=== PATIENT | female | born 1955 | race Caucasian/White ===

== ENCOUNTER 2016-09-03 13:31 | Inpatient (IN) | payer MEDICARE, OTHER ==
[2016-09-03] MEDS ORDERED: MAGNESIUM HYDROXIDE SUSP 30 ML CUP PO PRN (14:15)
[2016-09-03] MEDS ORDERED: SODIUM CHLORIDE 0.9% FLUSH 10 ML FLUSH IV FLUSH PRN (14:15)
[2016-09-03] MEDS ORDERED: ACETAMINOPHEN 325 MG TAB PO PRN ×2 (14:15→20:15)
[2016-09-03] MEDS ORDERED: RESP: ALBUTEROL 2.5 MG/IPRATROPIUM 0.5 MG NEB (PRN) NEB (14:15)
[2016-09-03 20:00] VITALS: BP 176/86; PULSE 72; RESP 18; TEMP 97.1; O2SAT 94
[2016-09-03] MEDS: ONDANSETRON HCL 4 MG/2 ML VIAL IVP PRN (20:39)
[2016-09-03] MEDS: methylPREDNISolone SOD SUCC 40 MG/1 ML VIAL IV PUSH SCH (20:39)
[2016-09-03] MEDS: SODIUM CHLORIDE 0.9% FLUSH 10 ML FLUSH IV FLUSH SCH (20:39)
[2016-09-03] MEDS: ENOXAPARIN SODIUM 40 MG/0.4 ML SYRINGE SQ SCH (20:39)
[2016-09-03] MEDS: RESP: ALBUTEROL 2.5 MG/IPRATROPIUM 0.5 MG NEB (SCH) NEB (20:59)
[2016-09-03 21:00] VITALS: O2SAT 98
--- NOTE | 2016-09-03 21:31 | HHI.HP ---
HPI Service [facility] Primary Care Physician Non-Staff Admission Diagnosis Diagnoses: Chief Complaint: Shortness of breath Travel History International Travel<30 Days: No Contact w/Intl Traveler <30 Da: No Traveled to Known Affected Are: No History of Present Illness The patient is very pleasant 61-year-old female with past medical history of hypertension, rheumatoid arthritis, osteopenia, fibromyalgia, chronic back pain who presented in the emergency room [facility] in [place] for evaluation of shortness of breath and wheezing. Patient says came from [place] for vacation. She says was starting wheezing and feeling shortness of breath, she took her nebulizers and inhalers but did not help. She also started vomiting and she had diarrhea yesterday and in the morning. No blood in it. She was not able to eat today because she was feeling sick. No fever or chills. She says she feels short of breath wheezing and has associated cough. Denies abdominal pain or chest pain. Denies lightheadedness or palpitations. No problem with urination. No rash on the body. There is no lower extremity edema. Review of Systems Except as stated in HPI: all other systems reviewed are Neg Past Family Social History Past Medical History Hypertension, rheumatoid arthritis, osteopenia, fibromyalgia. COPD/asthma Past Surgical History Laminectomy, fusion L2, L3, L4 Left knee surgery Right foot surgery Allergies: Coded Allergies: Penicillin (Verified Allergy, Unknown, 09/03/16) Family History Mother with diabetes, skin cancer melanoma Sister with SLE., chronic kidney disease Social History Denies alcohol use, illicit drug use, tobacco use Physical Exam Vital Signs Vital Signs Date Time Temp Pulse Resp B/P Pulse Ox O2 Delivery O2 Flow Rate FiO2 09/03/16 21:00 98 Nasal Cannula 2.00 Physical Exam GENERAL: This is a very pleasant 61-year-old female, well-nourished, well- developed patient, in no apparent distress. SKIN: No rashes, ecchymoses or lesions. Cool and dry. HEAD: Atraumatic. Normocephalic. No temporal or scalp tenderness. EYES: Pupils equal round and reactive. Extraocular motions intact. No scleral icterus. No injection or drainage. ENT: Nose without bleeding, purulent drainage or septal hematoma. Throat without erythema, tonsillar hypertrophy or exudate. Uvula midline. Airway patent. NECK: Trachea midline. No JVD or lymphadenopathy. Supple, nontender, no meningeal signs. CARDIOVASCULAR: Regular rate and rhythm without murmurs, gallops, or rubs. RESPIRATORY: Decreased breath sounds. Scattered wheezing. Cough. Bronchial breath sounds. GASTROINTESTINAL: Abdomen soft, non-tender, nondistended. No hepato-splenomegaly , or palpable masses. No guarding. MUSCULOSKELETAL: Extremities without clubbing, cyanosis, or edema. No joint tenderness, effusion, or edema noted. No calf tenderness. Negative Homans sign bilaterally. NEUROLOGICAL: Awake and alert. Cranial nerves II through XII intact. Motor and sensory grossly within normal limits. Five out of 5 muscle strength in all muscle groups. Normal speech. Assessment and Plan Assessment and Plan The patient is a pleasant 61-year-old female with Asthma/COPD exacerbation Chest x-ray reviewed and findings discussed with Dr. Dunne in ED [facility]. No acute findings, no infiltrates. DuoNeb's schedule and as need Start Solu Medrol IV, taper down as tolerated. Mucinex for cough/ Congestion Incentive spirometry Oxygen support as needed, keep oxygen saturation more than 92% She is saturating well on 2 L nasal cannula at this time There is no leukocytosis, tachycardia or fever on admission. An x-ray without infiltrate. We'll hold on antibiotics at this time Nausea and Diarrhea. Resolved currently. Check clostridium difficile negative diarrhea recur. Antiemetics as need. IV fluids if patient cannot tolerate by mouth. Hypertension. Patient not sure what current medications she is taking but she has to at home. Her sister will bring the medications tomorrow review. Her blood pressure is not controlled at this time, start amlodipine. Hydralazine and Vasotec as needed when necessary. Monitor vital signs. Chronic medical problems rheumatoid arthritis, osteopenia, chronic back pain, fibromyalgia appears stable at this time. Patient says she is taking [place] at home for pain. Start Bozman for pain control. Says she's follow-up in with her rheumatology in [place]. Activity prophylaxis SCD/teds, Lovenox Discussed Condition With Patient, nurse, ED physician in [facility] ER, family at bedside Elsa Ch MD September 03, 2016 21:31
[2016-09-03] MEDS ORDERED: ACETAMINOPHEN/HYDROcodone 325 MG/5 MG TAB PO PRN (22:30)
[2016-09-03] MEDS: TEMAZEPAM 15 MG CAP PO PRN (23:42)
[2016-09-03] MEDS: SODIUM CHLOR 0.9% 1000 ML INJ 1,000 ML IV SCH (23:42)
[2016-09-03] MEDS: ACETAMINOPHEN/HYDROcodone 325 MG/10 MG TAB PO PRN (23:43)
[2016-09-04] VITALS (9 sets, daily range): BP systolic 135–168; BP diastolic 61–87; PULSE 69–89; RESP 18–20; TEMP 97–98.1; O2SAT 94–98
[2016-09-04] MEDS: methylPREDNISolone SOD SUCC 40 MG/1 ML VIAL IV PUSH SCH ×4 (01:06→20:06)
[2016-09-04] MEDS: ONDANSETRON HCL 4 MG/2 ML VIAL IVP PRN ×3 (05:20→16:42)
[2016-09-04 07:33] LABS: CHLORIDE 106 MEQ/L (98-107); POTASSIUM 3.3 MEQ/L (3.5-5.1); SODIUM (NA) 140 MEQ/L (136-145)
[2016-09-04 07:41] LABS: ANION GAP 9 MEQ/L (5-15); BICARBONATE 25.3 MEQ/L (21.0-32.0); BLOOD UREA NITROGEN 20 MG/DL (7-18)
[2016-09-04 07:45] LABS: AST (GOT) 38 U/L (15-37); TOTAL BILIRUBIN ADULT 0.4 MG/DL (0.2-1.0)
[2016-09-04 07:46] LABS: ALKALINE PHOSPHATASE 97 U/L (45-117)
[2016-09-04 07:48] LABS: ALT (GPT) 67 U/L (10-53); GLOMERULAR FILTRATION RATE 85 ML/MIN (>89)
[2016-09-04] MEDS: RESP: ALBUTEROL 2.5 MG/IPRATROPIUM 0.5 MG NEB (SCH) NEB ×4 (07:57→19:23)
[2016-09-04 08:12] LABS: AUTOMATED NEUTROPHIL # 6.9 TH/MM3 (1.8-7.7); BASOPHIL % 0.5 % (0.0-2.0); EOSINOPHIL % 0.1 % (0.0-4.0); HEMATOCRIT 37.3 % (35.0-46.0); HEMO FLAGS DIFF FINAL; LYMPH % 5.9 % (9.0-44.0); LYMPHOCYTE # 0.4 TH/MM3 (1.0-4.8); MEAN CELL VOLUME 90.3 FL (80.0-100.0); MEAN CORPUSCULAR HEMOGLOBIN 30.7 PG (27.0-34.0); MONO % 1.5 % (0.0-8.0); PLATELET COUNT 164 TH/MM3 (150-450); RED BLOOD COUNT 4.14 MIL/MM3 (4.00-5.30); RED CELL DISTRIBUTION WIDTH 13.8 % (11.6-17.2); WHITE BLOOD COUNT 7.4 TH/MM3 (4.0-11.0)
[2016-09-04] MEDS ORDERED: amLODIPine BESYLATE 5 MG TAB PO SCH (09:00)
[2016-09-04] MEDS: SODIUM CHLORIDE 0.9% FLUSH 10 ML FLUSH IV FLUSH SCH ×2 (09:00→20:06)
[2016-09-04] MEDS: ACETAMINOPHEN/HYDROcodone 325 MG/10 MG TAB PO PRN ×3 (09:49→23:22)
--- NOTE | 2016-09-04 09:58 | HHI.PR ---
Subjective Remarks Says she still feels wheezing, she is coughing yellow sputum. She is vomiting clear fluid with white chunks. Not able to keep much food down. No diarrhea. No fever overnight. She is also complaining of severe headache and muscle cramps. Objective Vitals Vital Signs Date Time Temp Pulse Resp B/P Pulse Ox O2 Delivery O2 Flow Rate FiO2 09/04/16 07:59 98 Nasal Cannula 2.00 09/04/16 04:00 97.0 71 20 152/80 98 09/04/16 00:00 97.4 75 20 163/85 97 09/03/16 21:00 98 Nasal Cannula 2.00 09/03/16 20:00 94 Nasal Cannula 2.00 09/03/16 20:00 97.1 72 18 176/86 94 I/O 09/03/16 09/03/16 09/03/16 09/04/16 09/04/16 09/04/16 07:00 15:00 23:00 07:00 15:00 23:00 Intake Total 240 ml 776 ml Balance 240 ml 776 ml Intake Oral 240 ml 240 ml IV Total 536 ml # Voids 1 1 # Bowel Movements 0 0 Result Diagram: 09/04/16 0709/04/16 0700 Objective Remarks GENERAL: This is a very pleasant 61-year-old female, well-nourished, well- developed patient, in no apparent distress. SKIN: No rashes, ecchymoses or lesions. Cool and dry. HEAD: Atraumatic. Normocephalic. No temporal or scalp tenderness. EYES: Pupils equal round and reactive. Extraocular motions intact. No scleral icterus. No injection or drainage. ENT: Nose without bleeding, purulent drainage or septal hematoma. Throat without erythema, tonsillar hypertrophy or exudate. Uvula midline. Airway patent. NECK: Trachea midline. No JVD or lymphadenopathy. Supple, nontender, no meningeal signs. CARDIOVASCULAR: Regular rate and rhythm without murmurs, gallops, or rubs. RESPIRATORY: Decreased breath sounds. Scattered wheezing. Cough. Bronchial breath sounds. GASTROINTESTINAL: Abdomen soft, non-tender, nondistended. No hepato-splenomegaly , or palpable masses. No guarding. MUSCULOSKELETAL: Extremities without clubbing, cyanosis, or edema. No joint tenderness, effusion, or edema noted. No calf tenderness. Negative Homans sign bilaterally. NEUROLOGICAL: Awake and alert. Cranial nerves II through XII intact. Motor and sensory grossly within normal limits. Five out of 5 muscle strength in all muscle groups. Normal speech. A/P Assessment and Plan The patient is a pleasant 61-year-old female with Asthma/COPD exacerbation Chest x-ray reviewed and findings discussed with Dr. Dunne in ED [facility]. No acute findings, no infiltrates. DuoNeb's schedule and as need Start Solu Medrol IV, taper down as tolerated. Mucinex for cough/ Congestion Incentive spirometry Oxygen support as needed, keep oxygen saturation more than 92% She is saturating well on 2 L nasal cannula at this time There is no leukocytosis, tachycardia or fever on admission. An x-ray without infiltrate. We'll hold on antibiotics at this time LE pain, patient did travel by long ride car from [facility]. Says she has a h/ o DVT and was on xarelto ~3 years ago. Will check doppler US bilar LE to r/o DVT. Nausea and Diarrhea. Resolved currently. Check clostridium difficile negative diarrhea recur. Antiemetics as need. IV fluids if patient cannot tolerate by mouth. Hypertension. Patient not sure what current medications she is taking but she has to at home. Her sister will bring the medications tomorrow review. Her blood pressure is not controlled at this time, start amlodipine. Hydralazine and Vasotec as needed when necessary. Monitor vital signs. Chronic medical problems rheumatoid arthritis, osteopenia, chronic back pain, fibromyalgia appears stable at this time. Patient says she is taking [place]ber[place] at home for pain. Start Dubberly for pain control. Dilaudid for breakthrough pain. Says she's follow-up with her rheumatology doctor in [place]. Activity prophylaxis SCD/teds, Lovenox Discussed Condition With Patient, nurse Elsa Ch MD September 04, 2016 09:58
[2016-09-04] MEDS ORDERED: methylPREDNISolone SOD SUCC 40 MG/1 ML VIAL IV PUSH ONE (10:15)
[2016-09-04] MEDS ORDERED: amLODIPine BESYLATE 5 MG TAB PO ONE (11:00)
[2016-09-04] MEDS ORDERED: POTASSIUM CHLORIDE 10 MEQ CONTROLLED RELEASE TAB PO ONE (11:00)
[2016-09-04] MEDS: MAGNESIUM OXIDE 400 MG TAB PO SCH (11:27)
[2016-09-04] MEDS: AZITHROMYCIN INJ 500 MG in SODIUM CHLOR 0.9% 250 ML INJ 250 ML IV SCH (11:27)
[2016-09-04] MEDS: SODIUM CHLOR 0.9% 1000 ML INJ 1,000 ML IV SCH (11:28)
[2016-09-04] MEDS: HYDROmorphone HCL PF 1 MG/ML VIAL IV PUSH PRN ×3 (11:36→23:59)
[2016-09-04] MEDS ORDERED: methylPREDNISolone SOD SUCC 40 MG/1 ML VIAL IV PUSH SCH (12:00)
--- NOTE | 2016-09-04 14:30 | RADHPO ---
EXAM DATE/TIME: 09/04/2016 13:55 [facility] COMPARISON: No previous studies available for comparison. INDICATIONS : Bilateral leg pain. MEDICAL HISTORY : Chronic obstructive pulmonary disease. Hypertension. Gastroesophageal reflux disease. DVT. Kidney st ones. Arthritis. Osteoporosis. SURGICAL HISTORY : Appendectomy.Hysterectomy. Cholecystectomy. section. Left knee replacement. ENCOUNTER: Initial ACUITY: 1 week PAIN SCORE: 5/10 LOCATION: Bilateral legs. TECHNIQUE: Venous ultrasound of the left and right leg was performed from the inguinal ligament to the proximal calf. Real-time, color Doppler and spectral tracing, compression and augmentation techniques were us ed. FINDINGS: RIGHT LEG: There is normal compressibility of the deep venous system from the inguinal region to the proximal ca lf. No echogenic clot is seen in the lumen of the common femoral, femoral, popliteal, and posterior tibial veins. There is a normal response of the venous system to proximal and distal augmentation an d respiration. LEFT LEG: There is normal compressibility of the deep venous system from the inguinal region to the proximal ca lf. No echogenic clot is seen in the lumen of the common femoral, femoral, popliteal, and posterior tibial veins. There is a normal response of the venous system to proximal and distal augmentation an d respiration. CONCLUSION: 1. No DVT identified within either lower extremity. Shashi To MD on September 04, 2016 at 14:28 Board Certified Radiologist. This report was verified electronically.
[2016-09-04] MEDS: ENOXAPARIN SODIUM 40 MG/0.4 ML SYRINGE SQ SCH (20:06)
[2016-09-04] MEDS: TEMAZEPAM 15 MG CAP PO PRN (23:59)
[2016-09-05] VITALS (7 sets, daily range): BP systolic 124–153; BP diastolic 58–82; PULSE 67–77; RESP 16–20; TEMP 96.2–97.4; O2SAT 94–97
[2016-09-05] MEDS: methylPREDNISolone SOD SUCC 40 MG/1 ML VIAL IV PUSH SCH ×3 (02:07→15:37)
[2016-09-05] MEDS: ACETAMINOPHEN/HYDROcodone 325 MG/10 MG TAB PO PRN ×2 (07:46→13:55)
[2016-09-05] MEDS: ONDANSETRON HCL 4 MG/2 ML VIAL IVP PRN ×2 (07:46→13:55)
[2016-09-05] MEDS: SODIUM CHLORIDE 0.9% FLUSH 10 ML FLUSH IV FLUSH SCH ×2 (07:47→21:37)
[2016-09-05] MEDS: RESP: ALBUTEROL 2.5 MG/IPRATROPIUM 0.5 MG NEB (SCH) NEB ×4 (07:55→19:22)
--- NOTE | 2016-09-05 08:35 | HHI.PR ---
Subjective Remarks Patient in bed, says she feel improving. Says she was able to eat some breakfast. Still with nausea, no vomiting. Denies diarrhea. No abdominal pIn. Seh feels her chest is congested. + cough, with some yellow sputum. No fever or chills overnight. Objective Vitals Vital Signs Date Time Temp Pulse Resp B/P Pulse Ox O2 Delivery O2 Flow Rate FiO2 09/05/16 04:40 09/05/16 00:33 96.7 67 16 136/71 94 09/05/16 00:22 18 09/05/16 00:22 18 09/04/16 21:22 97.1 80 18 135/61 94 09/04/16 20:00 94 Room Air 09/04/16 19:25 96 21 09/04/16 16:30 97.2 89 19 167/85 96 09/04/16 15:46 95 21 09/04/16 13:36 97.2 88 19 168/84 95 09/04/16 10:31 98.1 69 19 165/87 95 I/O 09/04/16 09/04/16 09/04/16 09/05/16 09/05/16 09/05/16 07:00 15:00 23:00 07:00 15:00 23:00 Intake Total 776 ml 750 ml Output Total 300 ml Balance 776 ml 750 ml -300 ml Intake Oral 240 ml 750 ml IV Total 536 ml Output Urine Total 300 ml # Voids 1 4 1 # Bowel Movements 0 1 0 Result Diagram: 09/04/16 0700 09/04/16 0700 Imaging Last Impressions Lower Extremity Ultrasound 09/04/16 0000 Signed Impressions: Service Date/Time: Sunday, September 04, 2016 13:55 - CONCLUSION: 1. No DVT identified within either lower extremity. Shashi To MD Objective Remarks GENERAL: This is a very pleasant 61-year-old female, well-nourished, well- developed patient, in no apparent distress. SKIN: No rashes, ecchymoses or lesions. Cool and dry. HEAD: Atraumatic. Normocephalic. No temporal or scalp tenderness. EYES: Pupils equal round and reactive. Extraocular motions intact. No scleral icterus. No injection or drainage. ENT: Nose without bleeding, purulent drainage or septal hematoma. Throat without erythema, tonsillar hypertrophy or exudate. Uvula midline. Airway patent. NECK: Trachea midline. No JVD or lymphadenopathy. Supple, nontender, no meningeal signs. CARDIOVASCULAR: Regular rate and rhythm without murmurs, gallops, or rubs. RESPIRATORY: Decreased breath sounds. Scattered wheezing. Cough. Bronchial breath sounds. GASTROINTESTINAL: Abdomen soft, non-tender, nondistended. No hepato-splenomegaly , or palpable masses. No guarding. MUSCULOSKELETAL: Extremities without clubbing, cyanosis, or edema. No joint tenderness, effusion, or edema noted. No calf tenderness. Negative Homans sign bilaterally. NEUROLOGICAL: Awake and alert. Cranial nerves II through XII intact. Motor and sensory grossly within normal limits. Five out of 5 muscle strength in all muscle groups. Normal speech. A/P Assessment and Plan The patient is a pleasant 61-year-old female with Asthma/COPD exacerbation Chest x-ray reviewed and findings discussed with Dr. Dunne in ED [facility]. No acute findings, no infiltrates. DuoNeb's schedule and as need Start Solu Medrol IV, taper down as tolerated. Mucinex for cough/ Congestion Incentive spirometry. Add acapella Oxygen support as needed, keep oxygen saturation more than 92% She is saturating well on room air at this time There is no leukocytosis, tachycardia or fever on admission. An x-ray without infiltrate. We'll hold on antibiotics at this time LE baron, patient did travel by long ride car from [facility]. Says she has a h/ o DVT and was on xarelto ~3 years ago. Doppler US bilat LE reviewed and no DVT. Nausea and Diarrhea. Resolved currently. Check clostridium difficile if diarrhea recur. Antiemetics as need. IV fluids if patient cannot tolerate by mouth. Hypertension. Patient not sure what current medications she is taking but she has to at home. Her sister will bring the medications tomorrow review. Her blood pressure is not controlled at this time, start amlodipine. Hydralazine and Vasotec as needed when necessary. Monitor vital signs. Chronic medical problems rheumatoid arthritis, osteopenia, chronic back pain, fibromyalgia appears stable at this time. Patient says she is taking [place] at home for pain. Start [place] for pain control. Dilaudid for breakthrough pain. Says she's follow-up with her rheumatology doctor in [place]. Activity prophylaxis SCD/teds, Lovenox Discussed Condition With Patient, nurse DC plan: Pending improvement, poss DC 1-2 days Elsa Ch MD September 05, 2016 08:35
[2016-09-05] MEDS: MAGNESIUM OXIDE 400 MG TAB PO SCH (09:40)
[2016-09-05] MEDS: guaiFENesin E.R. 600 MG TAB PO SCH ×2 (09:40→21:37)
[2016-09-05] MEDS: guaiFENesin/DEXTROMETHORPHAN 200 MG/20 MG/10 ML CUP PO PRN ×3 (09:41→17:54)
[2016-09-05] MEDS: HYDROmorphone HCL PF 1 MG/ML VIAL IV PUSH PRN ×3 (09:41→19:56)
[2016-09-05] MEDS: AZITHROMYCIN INJ 500 MG in SODIUM CHLOR 0.9% 250 ML INJ 250 ML IV SCH (09:41)
[2016-09-05] MEDS: ENOXAPARIN SODIUM 40 MG/0.4 ML SYRINGE SQ SCH (21:37)
[2016-09-05] MEDS: TEMAZEPAM 15 MG CAP PO PRN (21:37)
[2016-09-06] MEDS: methylPREDNISolone SOD SUCC 40 MG/1 ML VIAL IV PUSH SCH ×2 (00:34→07:42)
[2016-09-06] MEDS: ONDANSETRON HCL 4 MG/2 ML VIAL IVP PRN ×2 (00:37→07:43)
[2016-09-06 00:51] VITALS: BP 141/76; PULSE 73; RESP 16; TEMP 98; O2SAT 98
[2016-09-06] MEDS: ACETAMINOPHEN/HYDROcodone 325 MG/10 MG TAB PO PRN ×2 (05:37→11:24)
[2016-09-06] MEDS: guaiFENesin/DEXTROMETHORPHAN 200 MG/20 MG/10 ML CUP PO PRN ×2 (05:40→11:23)
[2016-09-06] MEDS: RESP: ALBUTEROL 2.5 MG/IPRATROPIUM 0.5 MG NEB (SCH) NEB ×3 (07:41→15:17)
[2016-09-06 07:42] VITALS: O2SAT 96
[2016-09-06] MEDS: HYDROmorphone HCL PF 1 MG/ML VIAL IV PUSH PRN (07:43)
[2016-09-06] MEDS: guaiFENesin E.R. 600 MG TAB PO SCH (07:43)
[2016-09-06] MEDS: SODIUM CHLORIDE 0.9% FLUSH 10 ML FLUSH IV FLUSH SCH (07:43)
[2016-09-06 08:00] VITALS: BP 145/75; PULSE 58; RESP 20; TEMP 97.1; O2SAT 97
[2016-09-06] MEDS ORDERED: HYDR-3583 PO (08:52)
[2016-09-06] MEDS ORDERED: AZIT250T3 PO (08:52)
[2016-09-06] MEDS ORDERED: IPRA17I INH (08:52)
[2016-09-06] MEDS ORDERED: PRED10PA PO (08:52)
[2016-09-06] MEDS ORDERED: VENTAER INH (08:52)
[2016-09-06] MEDS ORDERED: SYMB160A INH (08:52)
[2016-09-06] MEDS ORDERED: AMLO10 PO (08:52)
[2016-09-06] MEDS ORDERED: MUCI600T PO (08:52)
--- NOTE | 2016-09-06 08:54 | HHI.DS ---
Discharge Summary Admission Date September 04, 2016 at 16:23 Discharge Date: September 06, 2016 Admitting Diagnosis COPD exacerbation (1) Asthma attack ICD Code: J45.901 Diagnosis: Principal (2) Rheumatoid arthritis ICD Code: M06.9 Diagnosis: Principal (3) COPD exacerbation ICD Code: J44.1 Diagnosis: Principal Procedures none Brief History - From Admission The patient is very pleasant 61-year-old female with past medical history of hypertension, rheumatoid arthritis, osteopenia, fibromyalgia, chronic back pain who presented in the emergency room [facility] in [place] for evaluation of shortness of breath and wheezing. Patient says came from [place] for vacation. She says was starting wheezing and feeling shortness of breath, she took her nebulizers and inhalers but did not help. She also started vomiting and she had diarrhea yesterday and in the morning. No blood in it. She was not able to eat today because she was feeling sick. No fever or chills. She says she feels short of breath wheezing and has associated cough. Denies abdominal pain or chest pain. Denies lightheadedness or palpitations. No problem with urination. No rash on the body. There is no lower extremity edema. CBC/BMP: 09/04/16 0700 09/04/16 0700 Significant Findings Laboratory Tests Test 09/04/16 07:00 Neutrophils (%) (Auto) 92.0 % (16.0-70.0) Lymphocytes (%) (Auto) 5.9 % (9.0-44.0) Lymphocytes # (Auto) 0.4 TH/MM3 (1.0-4.8) Potassium Level 3.3 MEQ/L (3.5-5.1) Blood Urea Nitrogen 20 MG/DL (7-18) Estimat Glomerular Filtration 85 ML/MIN (>89) Rate Random Glucose 148 MG/DL (74-106) Aspartate Amino Transf 38 U/L (15-37) (AST/SGOT) Alanine Aminotransferase 67 U/L (10-53) (ALT/SGPT) Albumin 3.2 GM/DL (3.4-5.0) Imaging Last Impressions Lower Extremity Ultrasound 5/19/17 0000 Signed Impressions: Service Date/Time: Sunday, September 04, 2016 13:55 - CONCLUSION: 1. No DVT identified within either lower extremity. Shashi To MD PE at Discharge GENERAL: This is a very pleasant 61-year-old female, well-nourished, well- developed patient, in no apparent distress. SKIN: No rashes, ecchymoses or lesions. Cool and dry. HEAD: Atraumatic. Normocephalic. No temporal or scalp tenderness. EYES: Pupils equal round and reactive. Extraocular motions intact. No scleral icterus. No injection or drainage. ENT: Nose without bleeding, purulent drainage or septal hematoma. Throat without erythema, tonsillar hypertrophy or exudate. Uvula midline. Airway patent. NECK: Trachea midline. No JVD or lymphadenopathy. Supple, nontender, no meningeal signs. CARDIOVASCULAR: Regular rate and rhythm without murmurs, gallops, or rubs. RESPIRATORY: Decreased breath sounds. Scattered wheezing. Cough. Bronchial breath sounds. GASTROINTESTINAL: Abdomen soft, non-tender, nondistended. No hepato-splenomegaly , or palpable masses. No guarding. MUSCULOSKELETAL: Extremities without clubbing, cyanosis, or edema. No joint tenderness, effusion, or edema noted. No calf tenderness. Negative Homans sign bilaterally. NEUROLOGICAL: Awake and alert. Cranial nerves II through XII intact. Motor and sensory grossly within normal limits. Five out of 5 muscle strength in all muscle groups. Normal speech. Pt update on day of discharge Improved significantly. Denies chest pain. Satting well on room air now. No sob , or wheezing. No n/v/d/c. Feels improved, comfortable to go home. Hospital Course The patient is a pleasant 61-year-old female with Asthma/COPD exacerbation. Improved significantly Chest x-[facility] and [facility]. No acute findings, no infiltrates. DuoNeb's schedule and as need Start Solu Medrol IV, tapered down as tolerated. Mucinex for cough/ Congestion Incentive spirometry. Add acapella Oxygen support as needed, keep oxygen saturation more than 92% She is saturating well on room air at this time There is no leukocytosis, tachycardia or fever on admission. CXR without infiltrate. However patient clinically worse, and was started on azithromycin LE pain, patient did travel by long ride car from [facility]. Says she has a h/ o DVT and was on xarelto ~3 years ago. Doppler US bilat LE reviewed and no DVT. Nausea and Diarrhea. Resolved. Check clostridium difficile if diarrhea recur. Antiemetics as need. IV fluids if patient cannot tolerate by mouth. Hypertension. Patient not sure what current medications she is taking but she has to at home. Her sister will bring the medications tomorrow review. Her blood pressure is not controlled at this time, start amlodipine. Hydralazine and Vasotec as needed when necessary. Monitor vital signs. Chronic medical problems rheumatoid arthritis, osteopenia, chronic back pain, fibromyalgia appears stable at this time. Patient says she is taking [place] at home for pain. Start [place] for pain control. Dilaudid for breakthrough pain. Says she's follow-up with her rheumatology doctor in [place]. Activity prophylaxis SCD/teds, Lovenox Improving. DC home in stable condition. To follow up with PCP and consultants. as OP. Pt Condition on Discharge: Stable Discharge Disposition: Discharge Home Discharge Time: > 30 minutes Discharge Instructions DIET: Follow Instructions for: Heart Healthy Diet Activities you can perform: Regular-No Restrictions Follow up Referrals: PCP Follow-up - 3-5 Days New Medications: Albuterol 18 GM Inh (Ventolin Hfa 18 GM Inh) 90 Mcg/Act Aer 2 PUFF INH Q4-6H PRN SHORTNESS OF BREATH #1 Ref 0 INHALER Azithromycin (Azithromycin) 250 Mg Tab 250 MG PO DAILY Infection #2 Ref 0 TAB Budesonide-Formoterol Inh (Symbicort Inh) 160-4.5 Mcg/Act Aero 2 PUFF INH Q12HR #1 Ref 0 INHALER Ipratropium HFA 12.9 GM Inh (Atrovent HFA 12.9 GM Inh) 17 Mcg/Act Aer 2 PUFF INH Q6HR PRN SHORTNESS OF BREATH #1 Ref 0 INHALER Prednisone (21) 10 mg tab Dose Pack (Prednisone (21) 10 mg tab Dose Pack) 10 Mg Pack 10 MG PO DIRECTED Inflammation #1 Ref 0 DSPK Amlodipine (Norvasc) 10 Mg Tab 10 MG PO DAILY Blood Pressure Management #30 TAB Guaifenesin ER 12 HR (Mucinex ER 12 HR) 600 Mg Leny 600 MG PO BID cough #30 TAB Hydrocodone-Acetaminophen (Hydrocodone-Acetaminophen) 10-325 mg Tab 1 TAB PO Q6H PRN pain 6-10 #10 TAB Elsa Ch MD September 06, 2016 08:54
[2016-09-06] MEDS: AZITHROMYCIN INJ 500 MG in SODIUM CHLOR 0.9% 250 ML INJ 250 ML IV SCH (11:23)
[2016-09-06] MEDS: MAGNESIUM OXIDE 400 MG TAB PO SCH (11:23)
== END 2016-09-06 15:45 | disposition home or self-care (01) | DRG 202 ==
LOC: PHEDDLT 13:31 → PH3A 18:34 → OBSVTOIN 09-04 16:23
PROVIDERS: ADMIT Hospitalist; ATTEND Hospitalist
DX: J45.901 Unspecified asthma with (acute) exacerbation (principal); J44.1 Chronic obstructive pulmonary disease with (acute) exacerbation; I10 Essential (primary) hypertension; G89.29 Other chronic pain; M06.9 Rheumatoid arthritis, unspecified; M79.7 Fibromyalgia; M85.80 Other specified disorders of bone density and structure, unspecified site; Z86.718 Personal history of other venous thrombosis and embolism; Z96.652 Presence of left artificial knee joint
CPT/HCPCS: 71010; 80053; 83605; 83880; 85025; 87040; 87070; 87205; 87804; 93005; 93970; 94150; 94640; 94664; 94667; 94668; 96361; 96374; 96375; 99281; G0378; G8987-GP; G8988-GP; J0456; J1170; J1650; J2405; J2920; J2930; J7030; J7050